=== PATIENT | male | born 1960 | race Caucasian/White ===

== ENCOUNTER 2019-01-05 06:32 | Day surgery (SDC) | payer OTHER ==
[2019-01-04 08:54] VITALS: BMI 35.4
[2019-01-05] MEDS ORDERED: methylPREDNISolone ACET (DEPO) 80 MG/1 ML VIAL ONE (07:29)
[2019-01-05] MEDS ORDERED: BUPIVACAINE HCL/PF 0.25% (2.5MG/ML) 10 ML VIAL ONE (07:29)
[2019-01-05] MEDS ORDERED: LIDOCAINE HCL 1%, 10 MG/ML (20ML VIAL) ONE (07:29)
[2019-01-05] MEDS ORDERED: SUCCINYLCHOLINE CHLORIDE 200 MG/10 ML SYRINGE ONE (07:37)
[2019-01-05] MEDS ORDERED: PROPOFOL 20 ML ONE (07:37)
[2019-01-05] MEDS ORDERED: BUPIVACAINE HCL/PF 0.25% (2.5MG/ML) 10 ML VIAL IJ ONE (07:45)
[2019-01-05] MEDS ORDERED: LIDOCAINE HCL 1%, 10 MG/ML (20ML VIAL) INF ONE (07:45)
[2019-01-05] MEDS ORDERED: methylPREDNISolone ACET (DEPO) 80 MG/1 ML VIAL IM ONE (07:45)
--- NOTE | 2019-01-05 08:35 | OP ---
DATE OF OPERATION: 01/05/2019 PREOPERATIVE DIAGNOSES: 1. History of left L4-5 and L5-S1 laminectomy. 2. Recurrent left S1 radiculopathy. POSTOPERATIVE DIAGNOSES: 1. History of left L4-5 and L5-S1 laminectomy. 2. Recurrent left S1 radiculopathy. ATTENDING SURGEON: Wilton Bernard MD PROCEDURE: 1. Left L5-S1 epidural steroid injection. 2. Intraoperative fluoroscopy. ANESTHESIA: Local with IV sedation. ANESTHESIOLOGIST: Jocelyn Mortensen MD INDICATION: The patient is a 58-year-old male who had previously undergone L4-5 and L5-S1 laminectomy on the left. He experienced intermittent exacerbation and recently had an exacerbation with thigh pain and sciatica on the left. He is here for his first epidural steroid injection on the left side. The risks of the procedure include but are not limited to bleeding, infection, spinal headache and neurologic injury. The patient understands the indications for the procedure, procedure in detail, risks and benefits and alternative forms of treatment to his condition and would like to proceed. No guarantees were given for a favorable outcome. PROCEDURE IN DETAIL: After patient was taken to the operating room, he was placed in a prone position with a pillow under his hips. Lumbar region was cleaned with alcohol and prepped with Betadine. Skin wheal was raised with 5 mL of 1% Xylocaine. A 22-gauge needle was inserted under AP and lateral fluoroscopic guidance from a left-sided approach to L5-S1 with a target of the left L5 lamina. Loss of resistance technique was utilized and there was no CSF or blood backflow. Depo-Medrol 80 mg and 1 mL of 0.25% Marcaine were injected. The needle was withdrawn. Sterile bandage was applied. The patient tolerated the procedure well and turned back to the supine position, moving bilateral lower extremities well. Upon turning prone, he was found to have some congestion likely due to allergies. He was oxygenating well throughout. OR timeout procedure was followed. WILTON BERNARD M.D. [facility]/[id number]
[2019-01-05 09:19] VITALS: BP 131/79; PULSE 75; TEMP 97.5
== END 2019-01-05 09:41 | disposition home or self-care (01) ==
LOC: JASU-SURG 06:32
PROVIDERS: ATTEND Neurological Surgery
PROC: 3E0R3BZ Introduction of Anesthetic Agent into Spinal Canal, Percutaneous Approach (ICD-10-PCS; 2019-01-05)
PROC: B01BYZZ Fluoroscopy of Spinal Cord using Other Contrast (ICD-10-PCS; 2019-01-05)
PROC: 3E0R33Z Introduction of Anti-inflammatory into Spinal Canal, Percutaneous Approach (ICD-10-PCS; principal; 2019-01-05 07:30)
DX: M54.17 Radiculopathy, lumbosacral region (principal); Z98.890 Other specified postprocedural states
CPT/HCPCS: 76000-TC-FY

== ENCOUNTER 2022-05-12 04:28 | Day surgery (SDC) | payer OTHER ==
[2022-05-06 18:01] VITALS: BMI 37.5
[~2022-05-12 04:28] MED LIST: BUPIVACAINE HCL/PF 0.25% (2.5MG/ML) 10 ML VIAL IJ ONE; LIDOCAINE HCL 1% PRESERVATIVE FREE - 30ML VIAL IJ ONE; methylPREDNISolone ACET (DEPO) 80 MG/1 ML VIAL IJ ONE
[2022-05-12] MEDS ORDERED: BUPIVACAINE HCL/PF 0.25% (2.5MG/ML) 10 ML VIAL ONE (07:46)
[2022-05-12] MEDS ORDERED: methylPREDNISolone ACET (DEPO) 80 MG/1 ML VIAL ONE (07:46)
[2022-05-12] MEDS ORDERED: PROPOFOL 20 ML ONE (07:59)
[2022-05-12] MEDS ORDERED: LIDOCAINE HCL 1% PRESERVATIVE FREE - 30ML VIAL IJ ONE (08:05)
[2022-05-12] MEDS ORDERED: BUPIVACAINE HCL/PF 0.25% (2.5MG/ML) 10 ML VIAL IJ ONE (08:05)
[2022-05-12] MEDS ORDERED: methylPREDNISolone ACET (DEPO) 80 MG/1 ML VIAL IJ ONE (08:05)
[2022-05-12 08:30] VITALS: RESP 20
[2022-05-12 10:46] VITALS: BP 140/80; PULSE 84; TEMP 98
== END 2022-05-12 10:46 | disposition home or self-care (01) ==
LOC: JASU-SURG 04:28
PROVIDERS: ATTEND Neurological Surgery
PROC: 3E0R3BZ Introduction of Anesthetic Agent into Spinal Canal, Percutaneous Approach (ICD-10-PCS; 2022-05-12)
PROC: 3E0R33Z Introduction of Anti-inflammatory into Spinal Canal, Percutaneous Approach (ICD-10-PCS; principal; 2022-05-12 07:30)
DX: M43.16 Spondylolisthesis, lumbar region (principal); M51.16 Intervertebral disc disorders with radiculopathy, lumbar region
CPT/HCPCS: 76000-TC-FY

== ENCOUNTER 2022-12-29 04:24 | Day surgery (SDC) | payer OTHER ==
[2022-12-25 14:10] VITALS: BMI 34.8
[2022-12-29] MEDS ORDERED: LIDOCAINE HCL/PF 1% SDV 5ML VIAL ONE (07:14)
[2022-12-29] MEDS ORDERED: TRIAMCINOLONE ACET 40MG/1ML VIAL ONE (07:14)
[2022-12-29] MEDS ORDERED: PROPOFOL 20 ML ONE (07:51)
[2022-12-29] MEDS ORDERED: LIDOCAINE HCL/PF 2% SDV 5ML VIAL ONE (07:56)
[2022-12-29] MEDS ORDERED: methylPREDNISolone ACET (DEPO) 80 MG/1 ML VIAL IM ONE (08:02)
[2022-12-29] MEDS ORDERED: BUPIVACAINE HCL/PF 0.25% (2.5MG/ML) 10 ML VIAL IJ ONE (08:02)
[2022-12-29] MEDS ORDERED: LIDOCAINE 1% P/F 10 MG/ML VIAL INF ONE (08:02)
[2022-12-29] MEDS ORDERED: BUPIVACAINE HCL/PF 0.25% (2.5MG/ML) 10 ML VIAL ONE (08:03)
[2022-12-29] MEDS ORDERED: methylPREDNISolone ACET (DEPO) 80 MG/1 ML VIAL ONE (08:04)
[2022-12-29] MEDS ORDERED: METOPROLOL TARTRATE 5 MG/5 ML VIAL ONE (08:05)
[2022-12-29] MEDS ORDERED: ACETAMINOPHEN 500 MG TABLET (FP) PO PRN (08:16)
[2022-12-29] MEDS ORDERED: IBUPROFEN 800 MG/8 ML IJ IVPB PRN (08:16)
[2022-12-29] MEDS ORDERED: oxyCODONE HCL 5 MG TABLET PO PRN (08:16)
[2022-12-29] MEDS ORDERED: LACTATED RINGERS SOLUTION 1,000 ML IV SCH (08:30)
[2022-12-29 08:54] VITALS: TEMP 98.6
[2022-12-29 09:07] VITALS: BP 132/80; PULSE 84; RESP 20
== END 2022-12-29 08:58 | disposition home or self-care (01) ==
LOC: JASU-SURG 04:24
PROVIDERS: ATTEND Neurological Surgery
PROC: 3E0R3BZ Introduction of Anesthetic Agent into Spinal Canal, Percutaneous Approach (ICD-10-PCS; 2022-12-29)
PROC: 3E0R33Z Introduction of Anti-inflammatory into Spinal Canal, Percutaneous Approach (ICD-10-PCS; principal; 2022-12-29 07:30)
DX: M54.16 Radiculopathy, lumbar region (principal); M96.1 Postlaminectomy syndrome, not elsewhere classified
CPT/HCPCS: 76000-TC-FY

== ENCOUNTER 2023-04-13 04:35 | Day surgery (SDC) | payer OTHER ==
[2023-04-09 13:46] VITALS: BMI 15.7
[2023-04-13] MEDS ORDERED: BUPIVACAINE HCL/PF 0.25% (2.5MG/ML) 10 ML VIAL ONE (08:01)
[2023-04-13] MEDS ORDERED: methylPREDNISolone ACET (DEPO) 80 MG/1 ML VIAL ONE (08:01)
[2023-04-13] MEDS ORDERED: MIDAZOLAM HCL 2 MG/2 ML SINGLE DOSE VIAL ONE (08:10)
[2023-04-13] MEDS ORDERED: methylPREDNISolone ACET (DEPO) 80 MG/1 ML VIAL IM ONE (08:20)
[2023-04-13] MEDS ORDERED: LIDOCAINE HCL 1%, 10 MG/ML (20ML VIAL) INF ONE (08:20)
[2023-04-13] MEDS ORDERED: BUPIVACAINE HCL/PF 0.25% (2.5MG/ML) 10 ML VIAL IJ ONE (08:20)
[2023-04-13 09:16] VITALS: BP 132/89; RESP 20; TEMP 97.9
[2023-04-13 09:17] VITALS: PULSE 86
== END 2023-04-13 09:30 | disposition home or self-care (01) ==
LOC: JASU-SURG 04:35
PROVIDERS: ATTEND Neurological Surgery
PROC: 3E0R3BZ Introduction of Anesthetic Agent into Spinal Canal, Percutaneous Approach (ICD-10-PCS; 2023-04-13)
PROC: 3E0R33Z Introduction of Anti-inflammatory into Spinal Canal, Percutaneous Approach (ICD-10-PCS; principal; 2023-04-13 08:00)
DX: M51.17 Intervertebral disc disorders with radiculopathy, lumbosacral region (principal)
CPT/HCPCS: 76000-TC-FY; 82962

== ENCOUNTER 2024-01-14 04:34 | Day surgery (SDC) | payer OTHER ==
[2024-01-11 11:53] VITALS: BMI 32.5
[2024-01-14] MEDS: LIDOCAINE HCL 1% PRESERVATIVE FREE - 30ML VIAL IJ ONE (12:18)
[2024-01-14] MEDS: BUPIVACAINE HCL/PF 0.75% 10 ML VIAL NR ONE ×2 (12:23)
[2024-01-14] MEDS ORDERED: ACETAMINOPHEN 500 MG TABLET (FP) PO PRN (13:03)
[2024-01-14 15:41] VITALS: BP 118/70; PULSE 77; RESP 20; TEMP 97.3
== END 2024-01-14 12:53 | disposition home or self-care (01) ==
LOC: JASU-SURG 04:34
PROVIDERS: ATTEND Pain Medicine Pain Medicine
PROC: 3E0T3BZ Introduction of Anesthetic Agent into Peripheral Nerves and Plexi, Percutaneous Approach (ICD-10-PCS; principal; 2024-01-14 12:15)
DX: M47.816 Spondylosis without myelopathy or radiculopathy, lumbar region (principal)
CPT/HCPCS: 76000-TC-FY

== ENCOUNTER 2024-02-19 04:02 | Day surgery (SDC) | payer OTHER ==
[2024-02-09 14:50] VITALS: BMI 32.5
[2024-02-19 10:11] VITALS: TEMP 97.5
[2024-02-19] MEDS ORDERED: ACETAMINOPHEN 500 MG TABLET (FP) PO PRN (10:51)
[2024-02-19] MEDS ORDERED: LIDOCAINE HCL/PF 1% SDV 5ML VIAL ONE (10:53)
[2024-02-19] MEDS ORDERED: BUPIVACAINE HCL/PF 0.75% 10 ML VIAL ONE (10:53)
[2024-02-19] MEDS: LIDOCAINE HCL 1% PRESERVATIVE FREE - 30ML VIAL IJ ONE ×3 (11:29)
[2024-02-19] MEDS: BUPIVACAINE HCL/PF 0.75% 10 ML VIAL NR ONE ×3 (11:29)
[2024-02-19 12:01] VITALS: BP 139/86; PULSE 74; RESP 16
== END 2024-02-19 11:56 | disposition home or self-care (01) ==
LOC: JASU-SURG 04:02
PROVIDERS: ATTEND Pain Medicine Pain Medicine
PROC: 3E0T3BZ Introduction of Anesthetic Agent into Peripheral Nerves and Plexi, Percutaneous Approach (ICD-10-PCS; principal; 2024-02-19 11:00)
DX: M47.816 Spondylosis without myelopathy or radiculopathy, lumbar region (principal)
CPT/HCPCS: 76000-TC-FY

== ENCOUNTER 2024-03-18 05:06 | Day surgery (SDC) | payer OTHER ==
[2024-03-17 16:11] VITALS: BMI 32.5
[2024-03-18] MEDS ORDERED: BUPIVACAINE HCL/PF 0.75% 10 ML VIAL ONE (07:26)
[2024-03-18] MEDS ORDERED: LIDOCAINE HCL/PF 1% SDV 5ML VIAL ONE (07:26)
[2024-03-18] MEDS ORDERED: LIDOCAINE HCL/PF 2% SDV 5ML VIAL ONE (07:26)
[2024-03-18 08:00] VITALS: RESP 20
[2024-03-18] MEDS ORDERED: ACETAMINOPHEN 500 MG TABLET (FP) PO PRN (09:06)
[2024-03-18] MEDS: LIDOCAINE HCL 1% PRESERVATIVE FREE - 30ML VIAL IJ ONE ×2 (09:11)
[2024-03-18] MEDS: LIDOCAINE HCL/PF 2% SDV 5ML VIAL INF ONE ×2 (09:11)
[2024-03-18] MEDS: BUPIVACAINE HCL/PF 0.75% 10 ML VIAL NR ONE ×2 (09:12)
[2024-03-18] MEDS: DEXAMETHASONE SOD PHOSPHATE 10 MG/1 ML VIAL IM ONE ×3 (09:21→09:28)
[2024-03-18 13:16] VITALS: BP 148/86; PULSE 78; TEMP 98
== END 2024-03-18 10:00 | disposition home or self-care (01) ==
LOC: JASU-SURG 05:06
PROVIDERS: ATTEND Pain Medicine Pain Medicine
PROC: 015B3ZZ Destruction of Lumbar Nerve, Percutaneous Approach (ICD-10-PCS; principal; 2024-03-18 08:45)
DX: M47.816 Spondylosis without myelopathy or radiculopathy, lumbar region (principal)
CPT/HCPCS: 76000-TC-FY; J1100

== ENCOUNTER 2024-04-14 04:23 | Day surgery (SDC) | payer OTHER ==
[2024-04-13 12:57] VITALS: BMI 32.3
[2024-04-14] MEDS ORDERED: BUPIVACAINE HCL/PF 0.75% 10 ML VIAL ONE (07:36)
[2024-04-14 13:19] VITALS: PULSE 83; RESP 18
[2024-04-14 13:47] VITALS: BP 123/76; TEMP 98
[2024-04-14] MEDS ORDERED: ACETAMINOPHEN 500 MG TABLET (FP) PO PRN (19:16)
== END 2024-04-14 13:40 | disposition home or self-care (01) ==
LOC: JASU-SURG 04:23
PROVIDERS: ATTEND Pain Medicine Pain Medicine
PROC: 015B3ZZ Destruction of Lumbar Nerve, Percutaneous Approach (ICD-10-PCS; principal; 2024-04-14 11:00)
DX: M47.816 Spondylosis without myelopathy or radiculopathy, lumbar region (principal)
CPT/HCPCS: 76000-TC-FY